=== PATIENT | female | born 1950 | race Caucasian/White ===

== ENCOUNTER 2019-01-05 08:18 | Emergency (ER) | payer OTHER, MEDICAID ==
[~2019-01-05] VITALS: Ht 157.5 cm; Wt 56.7 kg
[2019-01-05 08:57] VITALS: BP 169/87
[2019-01-05] MEDS: KETOROLAC TROMETH 30 MG/ML 1ML VIAL IM ONE (09:36)
[2019-01-05] MEDS: METHOCARBAMOL 500 MG TAB PO ONE (09:36)
== END 2019-01-05 10:46 | disposition home or self-care (01) ==
LOC: ER 08:18
DX: M54.5 Low back pain (principal); G89.29 Other chronic pain
CPT/HCPCS: 72131; 96372; 99284; J1885

== ENCOUNTER 2019-01-22 14:36 | Emergency (ER) | payer OTHER, MEDICAID ==
[~2019-01-22] VITALS: Ht 157.5 cm; Wt 56.7 kg
[2019-01-22 14:45] VITALS: BP 154/85
[2019-01-22] MEDS ORDERED: PROMETHAZINE HCL 25 MG/ML 1ML IM ONE (16:30)
[2019-01-22] MEDS ORDERED: MEPERIDINE HCL (50 MG/ML) 1 ML VIAL IM ONE (16:30)
== END 2019-01-22 17:19 | disposition home or self-care (01) ==
LOC: ER 14:41
DX: M54.5 Low back pain (principal); G89.29 Other chronic pain; E78.5 Hyperlipidemia, unspecified
CPT/HCPCS: 96372; 99283; J2175; J2550

== ENCOUNTER 2021-09-10 19:52 | Emergency (ER) | payer OTHER, MEDICAID ==
[~2021-09-10] VITALS: Ht 154.9 cm; Wt 56.7 kg
[2021-09-10 22:19] VITALS: BP 199/105
[2021-09-10] MEDS ORDERED: methylPREDNISolone SOD SUCC 125 MG/2 ML VL IM ONE (22:45)
[2021-09-10] MEDS ORDERED: KETOROLAC TROMETH 60MG/2ML VIAL IM ONE (22:45)
== END 2021-09-10 23:42 | disposition home or self-care (01) ==
LOC: ER 19:56
DX: M54.16 Radiculopathy, lumbar region (principal); M25.552 Pain in left hip; M54.42 Lumbago with sciatica, left side; W18.39XA Other fall on same level, initial encounter; Y93.89 Activity, other specified; Y92.89 Other specified places as the place of occurrence of the external cause; Y99.8 Other external cause status
CPT/HCPCS: 73502; 96372; 99284; J1885; J2930

== ENCOUNTER 2021-09-17 16:59 | Emergency (ER) | payer OTHER, MEDICAID ==
[~2021-09-17] VITALS: Ht 154.9 cm; Wt 59.0 kg
[2021-09-18 00:30] VITALS: BP 168/91
[2021-09-18] MEDS ORDERED: KETOROLAC TROMETH 60MG/2ML VIAL IM ONE (01:30)
== END 2021-09-18 01:49 | disposition home or self-care (01) ==
LOC: ER 16:59
DX: S82.002A Unspecified fracture of left patella, initial encounter for closed fracture (principal); M25.552 Pain in left hip; W18.09XA Striking against other object with subsequent fall, initial encounter; Y93.89 Activity, other specified; Y92.89 Other specified places as the place of occurrence of the external cause; Y99.8 Other external cause status
CPT/HCPCS: 29505; 73502; 73562; 93971; 96372; 99284; J1885